=== PATIENT | male | born 1980 | race Caucasian/White ===

== ENCOUNTER 2016-11-24 16:14 | Emergency (ER) | payer OTHER ==
[~2016-11-24] VITALS: Ht 180.3 cm; Wt 115.0 kg
[2016-11-24 16:17] VITALS: BP 151/95; PULSE 78; RESP 20; TEMP 98; O2SAT 94
--- NOTE | 2016-11-24 17:39 | PD ---
HPI Chief Complaint: Pain: Acute or Chronic Time Seen by Provider: 17:38 Travel History International Travel<30 days: No Contact w/Intl Traveler<30days: No Traveled to known affect area: No History of Present Illness HPI 35-year-old male presents emergency Department with complaint of low back pain after helping his mother move this weekend. Denies encopresis, incontinence, saddle anesthesia. Denies IV drug use. Denies cancer. He denies fever, chills , nausea, vomiting. He is ambulatory with a normal gait. Denies paresthesias, loss of sensation, decreased range of motion, decreased strength to bilateral lower extremities. Has taken Tylenol with no relief of pain. Has not tried any other treatments or medications to alleviate his symptoms. Pain is aggravated with movement. Allergies to penicillin. Denies significant past medical history. No other modifying factors or associated signs and symptoms. PFSH Past Medical History Medical History: Denies Significant Hx Social History Tobacco Use: No Allergies-Medications Reported Meds & Prescriptions Reported Meds & Active Scripts Active Ibuprofen 800 Mg Tab 800 Mg PO Q6HR PRN Robaxin (Methocarbamol) 500 Mg Tab 500 Mg PO QID PRN Review of Systems Except as stated in HPI: all other systems reviewed are Neg Physical Exam Narrative GENERAL: Well-nourished, well-developed male patient, in no acute distress SKIN: Warm and dry. HEAD: Atraumatic. Normocephalic. EYES: Pupils equal and round. No scleral icterus. No injection or drainage. ENT: Mucosa pink and moist. Airway patent. NECK: Trachea midline. CARDIOVASCULAR: Regular rate. RESPIRATORY: No accessory muscle use. GASTROINTESTINAL: Rounded. MUSCULOSKELETAL: Bilateral lower extremities supple and non-tense with 2+ pedal pulses and sensory intact; with full range of motion and 5/5 strength. Active dorsiflexion and extension of bilateral feet. Bilateral straight leg raise is positive for low back pain. Ambulatory with normal gait. Sitting up in bed at 90. Ambulatory in room with normal gait. No obvious deformities. No clubbing. No cyanosis. No edema. BACK: No midline point tenderness on palpation of the lumbar or thoracic spine. Tenderness on palpation of bilateral iliosacral area; worse on left than right. No obvious deformities. NEUROLOGICAL: Awake and alert. Oriented 3. No obvious cranial nerve deficits. Motor grossly within normal limits. Normal speech. Moves all extremities. 5/5 strength to all extremities. Sensory intact. PSYCHIATRIC: Appropriate mood and affect; insight and judgment normal. Data Data Last Documented VS Vital Signs Date Time Temp Pulse Resp B/P Pulse Ox O2 Delivery O2 Flow Rate FiO2 11/24/16 16:17 98.0 78 20 151/95 94 Room Air MDM Medical Decision Making Medical Screen Exam Complete: Yes Emergency Medical Condition: Yes Medical Record Reviewed: Yes Differential Diagnosis Low back strain, acute low back pain, muscle spasm Narrative Course 35-year-old male who exam consistent with low back strain. Denies IV drug use. Denies cancer. Ambulatory with normal gait. No midline point tenderness on palpation of the lumbar spine. Toradol and Norflex administered in the ER. Ibuprofen and Robaxin prescribed for home. Patient is medically cleared and stable for discharge. Discussed reasons to return to the emergency department. Instructed patient to follow up with primary care provider. Patient agrees with treatment plan. The patients vital signs are stable and the patient is stable for outpatient follow-up and treatment. Patient discharged home, stable and in no acute distress. Diagnosis Primary Impression: Low back strain Qualified Code: S39.012A - Low back strain, initial encounter Referrals: Primary Care Physician Patient Instructions: General Instructions, Low Back Strain (ED) Departure Forms: Tests/Procedures, Work Release Enter return to work date: Nov 28, 2016 Additional Instructions: Tylenol or ibuprofen as directed and as needed for pain Robaxin as prescribed and as needed for muscle spasms Heating pad and/or ice to affected area to reduce pain Avoid aggravating activities; increase activity as tolerated Follow-up with primary care provider Return to emergency department immediately with worsening of symptoms Med/Other Pt SpecificInfo: Prescription(s) given Scripts Ibuprofen 800 Mg [id number] Mg PO Q6HR PRN (PAIN) #30 TAB Ref 0 Prov:Courtney StoneP 11/24/16 Methocarbamol (Robaxin)500 Mg [id number] Mg PO QID PRN (MUSCLE SPASM) #30 TAB Ref 0 Prov:Courtney Stone 11/24/16 Disposition: 01 DISCHARGE HOME Condition: Stable Courtney Stone Nov 24, 2016 17:39
[2016-11-24] MEDS ORDERED: IBUP800T23 PO (17:41)
[2016-11-24] MEDS ORDERED: ROBA500T PO (17:41)
[2016-11-24] MEDS ORDERED: ORPHENADRINE INJ 60 MG/2 ML AMP IM ONE (18:00)
[2016-11-24] MEDS ORDERED: KETOROLAC TROMETHAMINE 60 MG/2 ML (IM) VIAL IM ONE (18:00)
== END 2016-11-24 18:24 | disposition home or self-care (01) ==
LOC: NEPB 16:14
DX: S39.012A Strain of muscle, fascia and tendon of lower back, initial encounter (principal); X50.0XXA Overexertion from strenuous movement or load, initial encounter
CPT/HCPCS: 96372; 99283; J1885; J2360

== ENCOUNTER 2017-03-24 09:19 | Emergency (ER) | payer OTHER ==
[~2017-03-24] VITALS: Ht 182.9 cm; Wt 100.0 kg
[~2017-03-24 09:19] MED LIST: IBUP800T23 PO; ROBA500T PO
[2017-03-24 09:21] VITALS: BP 141/87; PULSE 71; RESP 16; TEMP 98.9; O2SAT 99
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
[2017-03-24] MEDS ORDERED: IBUPROFEN 400 MG TAB PO ONE (10:45)
[2017-03-24] MEDS ORDERED: ACETAMINOPHEN/HYDROcodone 325 MG/5 MG TAB PO ONE (10:45)
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
[2017-03-24] MEDS ORDERED: IBUP-232 PO (11:21)
[2017-03-24] MEDS ORDERED: ULTR50TA5 PO (12:08)
== END 2017-03-24 12:26 | disposition home or self-care (01) ==
LOC: NEPD 09:19
DX: S09.90XA Unspecified injury of head, initial encounter (principal); R07.89 Other chest pain; V49.49XA Driver injured in collision with other motor vehicles in traffic accident, initial encounter; Y92.410 Unspecified street and highway as the place of occurrence of the external cause; Z88.0 Allergy status to penicillin; Z72.0 Tobacco use
CPT/HCPCS: 70450; 71010; 72125; 99285

== ENCOUNTER 2017-05-20 21:06 | Emergency (ER) | payer OTHER ==
[~2017-05-20] VITALS: Ht 180.3 cm; Wt 101.0 kg
[~2017-05-20 21:06] MED LIST changes: +IBUP-232 PO; -IBUP800T23 PO; -ROBA500T PO; +ULTR50TA5 PO
--- NOTE | 2017-05-20 21:23 | PD ---
HPI Chief Complaint: OD/ Ingestion Time Seen by Provider: 21:22 Travel History International Travel<30 days: No Contact w/Intl Traveler<30days: No Traveled to known affect area: No History of Present Illness HPI 36-year-old male presents to the ED under Ritter act for psychiatric evaluation. The patient was found down, with agonal breathing by EMS. He was administered 2 mg Narcan and became responsive. The patient refused to admit he had taken any narcotics and refused to receive treatment despite this risk of further overdose. Thus, he was Ritter Acted and brought to the ED. On presentation the patient states that he has been drinking all day and took a Xanax but denies opioid use. He denies headache, dizziness, fever, chills, abdominal pain, nausea, vomiting, neuro deficits. He denies illicit drug use. PFSH Past Medical History Medical History: Denies Significant Hx Neurologic: Yes (SIATICA ) Tetanus Vaccination: < 5 Years Influenza Vaccination: No Social History Alcohol Use: Yes (OCC) Tobacco Use: Yes Substance Use: No Allergies-Medications (Allergen,Severity, Reaction): Coded Allergies: Penicillin (Verified Allergy, Severe, Anaphylaxis, 05/20/17) Reported Meds & Prescriptions Reported Meds & Active Scripts Active Review of Systems Except as stated in HPI: all other systems reviewed are Neg Physical Exam Narrative GENERAL: Well-nourished, well-developed antagonistic, argumentative white male in no acute distress. SKIN: Focused skin assessment warm/dry. HEAD: Normocephalic. EYES: No scleral icterus. No injection or drainage. Pupils pinpoint bilaterally. NECK: Supple, trachea midline. No JVD or lymphadenopathy. CARDIOVASCULAR: Regular rate and rhythm without murmurs, gallops, or rubs. RESPIRATORY: Breath sounds clear and equal bilaterally. No accessory muscle use. GASTROINTESTINAL: Abdomen soft, non-tender, nondistended. Active bowel sounds. MUSCULOSKELETAL: No cyanosis, or edema. NEUROLOGICAL: Awake and alert. Cranial nerves II through XII intact. Motor and sensory grossly within normal limits. Five out of 5 muscle strength in all muscle groups. Normal speech. BACK: Nontender without obvious deformity. No CVA tenderness. Data Data Last Documented VS Vital Signs Date Time Temp Pulse Resp B/P Pulse Ox O2 Delivery O2 Flow Rate FiO2 05/20/17 21:17 18 100 Room Air Orders Complete Blood Count With Diff (05/20/17 21:29) Comprehensive Metabolic Panel (05/20/17 21:29) Psych Screen (05/20/17 21:29) Drug Screen, Random Urine (05/20/17 21:29) Alcohol (Ethanol) (05/20/17 21:29) Labs Laboratory Tests Test 05/20/17 21:35 White Blood Count 14.8 TH/MM3 Red Blood Count 5.49 MIL/MM3 Hemoglobin 16.5 GM/DL Hematocrit 49.0 % Mean Corpuscular Volume 89.3 FL Mean Corpuscular Hemoglobin 30.0 PG Mean Corpuscular Hemoglobin 33.6 % Concent Red Cell Distribution Width 13.8 % Platelet Count 270 TH/MM3 Mean Platelet Volume 8.5 FL Neutrophils (%) (Auto) 77.9 % Lymphocytes (%) (Auto) 13.3 % Monocytes (%) (Auto) 8.4 % Eosinophils (%) (Auto) 0.2 % Basophils (%) (Auto) 0.2 % Neutrophils # (Auto) 11.5 TH/MM3 Lymphocytes # (Auto) 2.0 TH/MM3 Monocytes # (Auto) 1.2 TH/MM3 Eosinophils # (Auto) 0.0 TH/MM3 Basophils # (Auto) 0.0 TH/MM3 CBC Comment DIFF FINAL Differential Comment MDM Medical Decision Making Medical Screen Exam Complete: Yes Emergency Medical Condition: Yes Differential Diagnosis Accidental overdose versus acute substance intoxication versus alcohol intoxication versus other Narrative Course 36-year-old male presents to the ED under Ritter act for psychiatric evaluation. The patient was found down, with agonal breathing by EMS. He was administered 2 mg Narcan and became responsive. The patient refused to admit he had taken any narcotics and refused to receive treatment despite this risk of further overdose. Thus, he was Ritter Acted and brought to the ED. On presentation the patient states that he has been drinking all day and took a Xanax but denies opioid use. He denies headache, dizziness, fever, chills, abdominal pain, nausea, vomiting, neuro deficits. He denies illicit drug use. Vitals reviewed. Patient's pupils are pinpoint but the physical exam is otherwise unremarkable. Lab work ordered and pending. Disposition will be per Dr. Whatley. Scripts No Active Prescriptions or Reported Meds Daniela Adams May 20, 2017 21:23
--- NOTE | 2017-05-20 21:42 | PD ---
Data Data Last Documented VS Vital Signs Date Time Temp Pulse Resp B/P Pulse Ox O2 Delivery O2 Flow Rate FiO2 05/21/17 00:29 72 18 124/69 95 Room Air Orders Complete Blood Count With Diff (05/20/17 21:29) Comprehensive Metabolic Panel (05/20/17 21:29) Psych Screen (05/20/17 21:29) Drug Screen, Random Urine (05/20/17 21:29) Alcohol (Ethanol) (05/20/17 21:29) Labs Laboratory Tests Test 05/20/17 05/20/17 21:35 23:37 White Blood Count 14.8 TH/MM3 Red Blood Count 5.49 MIL/MM3 Hemoglobin 16.5 GM/DL Hematocrit 49.0 % Mean Corpuscular Volume 89.3 FL Mean Corpuscular Hemoglobin 30.0 PG Mean Corpuscular Hemoglobin 33.6 % Concent Red Cell Distribution Width 13.8 % Platelet Count 270 TH/MM3 Mean Platelet Volume 8.5 FL Neutrophils (%) (Auto) 77.9 % Lymphocytes (%) (Auto) 13.3 % Monocytes (%) (Auto) 8.4 % Eosinophils (%) (Auto) 0.2 % Basophils (%) (Auto) 0.2 % Neutrophils # (Auto) 11.5 TH/MM3 Lymphocytes # (Auto) 2.0 TH/MM3 Monocytes # (Auto) 1.2 TH/MM3 Eosinophils # (Auto) 0.0 TH/MM3 Basophils # (Auto) 0.0 TH/MM3 CBC Comment DIFF FINAL Differential Comment Sodium Level 138 MEQ/L Potassium Level 3.9 MEQ/L Chloride Level 101 MEQ/L Carbon Dioxide Level 24.9 MEQ/L Anion Gap 12 MEQ/L Blood Urea Nitrogen 17 MG/DL Creatinine 0.99 MG/DL Estimat Glomerular Filtration 85 ML/MIN Rate Random Glucose 116 MG/DL Calcium Level 8.5 MG/DL Total Bilirubin 0.2 MG/DL Aspartate Amino Transf 31 U/L (AST/SGOT) Alanine Aminotransferase 51 U/L (ALT/SGPT) Alkaline Phosphatase 91 U/L Total Protein 8.0 GM/DL Albumin 3.5 GM/DL Ethyl Alcohol Level 99 MG/DL Urine Opiates Screen POS Urine Barbiturates Screen NEG Urine Amphetamines Screen NEG Urine Benzodiazepines Screen POS Urine Cocaine Screen POS Urine Cannabinoids Screen NEG MDM Supervised Visit with GAMALIEL: Yes Narrative Course Patient care assumed from Kinga Adams at 2300. This is a 36-year-old male presents emergency department after being resuscitated with Narcan. According to Ritter act documentation patient was pale blue and nearly apneic on scene. He was administered Narcan and transported to the emergency department. He was placed under Ritter act because he didn't want to come to the emergency department after receiving Narcan. She is fairly upset that he is here and I was able to calm him down and explained that I just wanted to watch him for a few hours make sure that he didn't have rebound effects of any medications after receiving Narcan. He is much calmer. We'll continue to observe him in the emergency department until unsatisfied that his Narcan has worn off and he will have rebound hypoxia. Patient was observed for 3 and half hours in the emergency department, ambulatory around the emergency department. UDS positive for cocaine and opiates and benzodiazepines. Alcohol level 99, at this point he is clinically and legally sober from alcohol. The patient has a sober ride home and likely released. At this point is not threat to himself or others and is not greatly disabled. Ritter act was lifted is discharged to his 's care. Diagnosis Primary Impression: Opiate overdose Scripts No Active Prescriptions or Reported Meds Disposition: 01 DISCHARGE HOME Condition: Stable Barak Whtaley MD May 20, 2017 21:42
[2017-05-20 22:04] LABS: AUTOMATED NEUTROPHIL # 11.5 TH/MM3 (1.8-7.7); BASOPHIL % 0.2 % (0.0-2.0); EOSINOPHIL % 0.2 % (0.0-4.0); HEMO FLAGS DIFF FINAL; LYMPH % 13.3 % (9.0-44.0); MEAN CELL VOLUME 89.3 FL (80.0-100.0); MEAN CORPUSCULAR HGB CONC 33.6 % (32.0-36.0); MONO % 8.4 % (0.0-8.0); NEUT % 77.9 % (16.0-70.0); PLATELET COUNT 270 TH/MM3 (150-450); RED BLOOD COUNT 5.49 MIL/MM3 (4.50-5.90); RED CELL DISTRIBUTION WIDTH 13.8 % (11.6-17.2); WHITE BLOOD COUNT 14.8 TH/MM3 (4.0-11.0)
[2017-05-20 22:26] LABS: ALT (GPT) 51 U/L (12-78)
[2017-05-20 22:28] LABS: ALKALINE PHOSPHATASE 91 U/L (45-117); TOTAL BILIRUBIN ADULT 0.2 MG/DL (0.2-1.0)
[2017-05-20 22:48] LABS: ANION GAP 12 MEQ/L (5-15); AST (GOT) 31 U/L (15-37); BICARBONATE 24.9 MEQ/L (21.0-32.0); BLOOD UREA NITROGEN 17 MG/DL (7-18); CHLORIDE 101 MEQ/L (98-107); GLOMERULAR FILTRATION RATE 85 ML/MIN (>89); POTASSIUM 3.9 MEQ/L (3.5-5.1); SODIUM (NA) 138 MEQ/L (136-145)
[2017-05-20 22:52] LABS: ALCOHOL 99 MG/DL (0-5)
[2017-05-21 00:29] VITALS: BP 124/69; PULSE 72; RESP 18; O2SAT 95
== END 2017-05-21 00:41 | disposition home or self-care (01) ==
LOC: NEPC 21:06
DX: T42.4X1A Poisoning by benzodiazepines, accidental (unintentional), initial encounter (principal); Z72.0 Tobacco use; Z88.0 Allergy status to penicillin
CPT/HCPCS: 80053; 80307; 85025; 99283